=== PATIENT | female | born 1990 | race African-American/Black ===

== ENCOUNTER 2020-07-29 15:43 | Emergency (ER) | payer OTHER ==
[2020-07-29 16:21] LABS: BASOPHILS # (AUTO) 0.1 10^3/uL (0.0-0.1); BASOPHILS % (AUTO) 0.5 %; EOSINOPHILS # (AUTO) 0.1 10^3/uL (0.0-0.7); EOSINOPHILS % (AUTO) 1.2 %; HGB - HEMOGLOBIN 14.4 g/dL (12.0-16.0); LYMPHOCYTES # (AUTO) 2.7 10^3/uL (1.5-3.5); LYMPHOCYTES % (AUTO) 26.5 %; MEAN CORPUSCULAR HEMOGLOBIN 30.9 pg (27.0-31.0); MEAN CORPUSCULAR HGB CONC 34.5 g/dL (32.0-36.0); MEAN CORPUSCULAR VOLUME 89.5 fL (81.0-99.0); MEAN PLATELET VOLUME 9.1 fL (7.9-10.8); MONOCYTES # (AUTO) 0.3 10^3/uL (0.0-1.0); MONOCYTES % (AUTO) 2.6 %; NEUTROPHILS # (AUTO) 7.1 10^3/uL (1.5-6.6); NEUTROPHILS % (AUTO) 68.7 %; PLT - PLATELET COUNT 327 10^3/uL (130-450); RED BLOOD COUNT 4.66 10^6/uL (4.20-5.40); RED CELL DISTRIBUTION WIDTH 11.7 % (12.0-15.0); WHITE BLOOD COUNT 10.3 x10^3/uL (4.8-10.8)
--- NOTE | 2020-07-29 16:32 | ED Physician Documentation ---
History of Present Illness - Stated complaint Stated Complaint: ABD CRAMP/NAUSEA - Chief complaint Chief Complaint: Abd Pain - Additonal information Additional information: 21-year-old female presents the emergency department for evaluation of lower pelvic pain. She reports that her menstrual cycle ended yesterday. However 3 days ago she began having low back pain followed by low pelvic pain. She denies any fevers any vomiting. Denies dysuria urgency or frequency. She states that she takes oral contraceptives and has a monthly cycle. She denies that she has any possibility of . She states that she knows her body well and the lower pelvic pain was assigned to her that something was seriously wrong. She is concerned that she could have fibroids or endometriosis. She called her pcp but they were unable to see her for 2 weeks She denies any pertinent past medical history. She takes no prescribed medications other than oral contraceptives. She is a non-smoker nondrinker. Review of Systems Constitutional: reports: Reviewed and negative Nose: reports: Reviewed and negative Throat: reports: Reviewed and negative Cardiac: reports: Reviewed and negative Respiratory: reports: Reviewed and negative GI: reports: Abdominal Pain. denies: Nausea, Vomiting, Diarrhea, Hematemesis, Bloody / black stool : denies: Dysuria, Frequency, Hesitancy, Hematuria Skin: reports: Reviewed and negative Musculoskeletal: reports: Back pain Neurologic: reports: Reviewed and negative Psychiatric: reports: Reviewed and negative PD PAST MEDICAL HISTORY - Allergies Allergies/Adverse Reactions: Allergies Allergy/AdvReac Type Severity Reaction Status Date / Time No Known Drug Allergies Allergy Verified 07/29/20 15:55 - Social History Does the pt smoke?: No Smoking Status: Never smoker PD ED PE NORMAL - General General: Alert and oriented X 3, No acute distress - Neck Neck: Supple, no meningeal sign - Cardiac Cardiac: RRR, No murmur - Respiratory Respiratory: Clear bilaterally - Abdomen Abdomen: Normal bowel sounds, Soft, Non tender, Non distended - Back Back: No CVA TTP - Derm Derm: Normal color, Warm and dry - Extremities Extremities: No deformity, No tenderness to palpate - Neuro Neuro: Alert and oriented X 3, 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 Eye Opening: Spontaneous Motor: Obeys Commands Verbal: Oriented GCS Score: 15 Results - Vitals Vitals: Vital Signs - 24 hr 07/29/20 07/29/20 15:49 17:55 Temperature 36.5 C Heart Rate 64 56 L Respiratory 14 18 Rate Blood Pressure 139/77 H 112/67 O2 Saturation 100 100 Oxygen O2 Source Room air - Labs Labs: Laboratory Tests 07/29/20 07/29/20 07/29/20 16:18 16:18 16:37 WBC 10.3 RBC 4.66 Hgb 14.4 Hct 41.7 MCV 89.5 MCH 30.9 MCHC 34.5 RDW 11.7 L Plt Count 327 MPV 9.1 Neut # (Auto) 7.1 H Lymph # (Auto) 2.7 Weber # (Auto) 0.3 Eos # (Auto) 0.1 Baso # (Auto) 0.1 Absolute Nucleated RBC 0.00 Nucleated RBC % 0.0 Sodium 138 Potassium 4.0 Chloride 100 L Carbon Dioxide 27 Anion Gap 11.0 BUN 8 Creatinine 0.9 Estimated GFR (MDRD) 90 Glucose 130 H Calcium 9.4 Total Bilirubin 0.6 AST 20 ALT 18 Alkaline Phosphatase 37 L Total Protein 7.5 Albumin 4.3 Globulin 3.2 Albumin/Globulin Ratio 1.3 Lipase 42 Urine Color YELLOW Urine Clarity CLEAR Urine pH 6.0 Ur Specific [place] 1.010 Urine Protein NEGATIVE Urine Glucose (UA) NEGATIVE Urine Ketones NEGATIVE Urine Occult Blood SMALL H Urine Nitrite NEGATIVE Urine Bilirubin NEGATIVE Urine Urobilinogen 0.2 (NORMAL) Ur Leukocyte Esterase NEGATIVE Urine RBC 0-5 Urine WBC 0-3 Ur Squamous Epith Cells RARE Squamous Urine Bacteria Rare Ur Microscopic Review INDICATED Urine Culture Comments NOT INDICATED Urine HCG, Qual NEGATIVE - Rads (name of study) pelvic US Radiology: See rad report, Other (Per technologist there are multiple small fibroids within the uterine body. Both ovaries show appropriate flow without findings of torsion.) PD MEDICAL DECISION MAKING - ED course Complexity details: reviewed results, re-evaluated patient, considered differential, d/w patient ED course: 29-year-old female presents to the emergency department for evaluation of lower pelvic pain for 2 days. She reports a history of monthly regular cycles while on control. She did currently just finished her menstrual cycle 2 days ago. And has no further active bleeding. She has no urinary symptoms. On exam unable to elicit any abdominal tenderness. However after doing a Google search the patient is exceedingly concerned that she may have fibroids despite the lack of bleeding or endometriosis. 1915: Pelvic ultrasound reveals multiple small fibroids within the uterine body. There were no findings of ovarian torsion or cyst. These findings were discussed with the patient. She will discuss with her primary care provider at [facility] in order to obtain a referral to women's health/[facility]. Emergent return precautions were discussed and they include but are not limited to severe pain, heavy uncontrolled vaginal bleeding and fevers. Departure - Departure Disposition: 01 Home, Self Care Clinical Impression: Uterine fibroid Qualifiers: Uterine leiomyoma location: unspecified location Qualified Code(s): D25.9 - Leiomyoma of uterus, unspecified Condition: Stable Record reviewed to determine appropriate education?: Yes Instructions: ED Fibroids Follow-Up: Joy Reynoso MD [Primary Care Provider] - Comments: Your labs today are essentially unremarkable. Your hemoglobin and electrolytes are normal. We did do an ultrasound of your pelvic organs. The ovaries appeared normal without cysts. However there were findings of multiple small fibroids within your uterus. Please discuss this finding with your primary care provider. You should be referred to an [facility] for long-term management and follow-up. Return to the emergency department if you develop fevers, have uncontrolled vaginal bleeding, or suddenly severe or different abdominal pain.
[2020-07-29 16:35] LABS: ALBUMIN 4.3 g/dL (3.2-5.5); ALBUMIN/GLOBULIN RATIO 1.3 (1.0-2.2); BILIRUBIN,TOTAL 0.6 mg/dL (0.2-1.0); CALCIUM 9.4 mg/dL (8.5-10.3); CREATININE 0.9 mg/dL (0.4-1.0); TOTAL PROTEIN 7.5 g/dL (6.7-8.2)
[2020-07-29 16:53] LABS: BILIRUBIN,URINE NEGATIVE (NEGATIVE); GLUCOSE, URINE (UA) NEGATIVE (NEGATIVE); KETONES,URINE (UA) NEGATIVE (NEGATIVE); LEUKOCYTE ESTERASE, URINE NEGATIVE (NEGATIVE); NITRITE,URINE NEGATIVE (NEGATIVE); OCCULT BLOOD,URINE SMALL (NEGATIVE); PROTEIN,URINE NEGATIVE (NEGATIVE); UROBILINOGEN,URINE 0.2 (NORMAL) E.U./dL (NORMAL)
[2020-07-29 16:56] LABS: CLARITY,URINE CLEAR (CLEAR); HCG UR QUAL NEGATIVE
[2020-07-29 17:10] LABS: BACTERIA,URINE Rare /HPF (None Seen); RBC,URINE 0-5 /HPF (0-5); SQUAMOUS EPITHELIAL CELL,UR RARE Squamous (<= Few)
[2020-07-29] MEDS ORDERED: IBUPROFEN 600 MG TABLET PO STA (18:01)
[2020-07-29] MEDS ORDERED: ACETAMINOPHEN 325 MG TABLET PO STA (18:01)
[2020-07-29 19:20] VITALS: BP 142/82
--- NOTE | 2020-07-30 09:02 | Ultrasound Report ---
PROCEDURE: Pelvic w/Doppler Complete INDICATIONS: lower pelvic pain for 2 days; ? fibroids/cysts?? TECHNIQUE: Real-time scanning was performed of the pelvic organs, with image documentation. Additional endovagi nal scanning was necessary due to incomplete visualization of the adnexal and endometrial structures by transabdominal scanning. COMPARISON: None. FINDINGS: Transabdominal scanning: Limited scanning through the kidneys shows no hydronephrosis. No pathologi c free abdominal or pelvic fluid. Endovaginal scanning: Uterus: Uterus is normal in size at 4.1 x 4.9 x 8.5 cm. The endometrium measures 5 mm in combined t hickness. Heterogeneous myometrial echotexture is noted with multiple uterine fibroids seen, the larg est one measures 1.2 x 1.2 x 1.3 cm in size in right anterior myometrium. Left posterior subserosal f ibroid measures 1.1 x 0.9 x 0.8 cm in size. Tiny 4 x 3 x 5 mm posterior intramural fibroid in left my ometrium is also seen. No gross endometrial mass is seen. Trace amount of fluid is noted within endom etrial cavity. Fluid is seen within cervical canal. Ovaries: Right ovary measures 2.5 x 1.2 x 2.2 cm in size. Left ovary measures 3.7 x 1.6 x 1.3 cm in size. No solid-appearing ovarian lesion. Normal blood flow is seen in bilateral ovaries on color Dopp ler images. IMPRESSION: 1. Multiple small uterine fibroids as described above. No discrete endometrial mass. Trace amount of endometrial fluid and endocervical fluid. 2. Normal-appearing bilateral ovaries. No evidence of ovarian torsion. Agree with preliminary reading. Reviewed by: Ole Marin MD on 07/30/2020 9:01 AM [facility] Approved by: Ole Marin MD on 07/30/2020 9:01 AM PST Station ID: [id number]
== END 2020-07-29 19:25 | disposition home or self-care (01) ==
LOC: ED 15:43
DX: D25.2 Subserosal leiomyoma of uterus (principal); D25.1 Intramural leiomyoma of uterus
CPT/HCPCS: 36415; 76856; 80053; 81001; 81025; 83690; 85025; 93975; 99284; A9270; 81003; 87086

== ENCOUNTER 2020-08-20 01:36 | Emergency (ER) | payer OTHER ==
--- NOTE | 2020-08-20 02:29 | ED Physician Documentation ---
PD HPI DYSPNEA - Stated complaint Stated Complaint: SOA - Chief complaint Chief Complaint: Resp - History obtained from History obtained from: Patient - History of Present Illness Timing - onset: How many days ago (5-6) Timing - details: Gradual onset Improved by: Rest Worsened by: Exertion, Coughing Associated symptoms: Cough, Wheezing, Chest pain / discomfort. No: Fever, Hemoptysis, Bilateral edema, Unilateral edema Recently seen: Other ([facility]) - Additional information Additional information: c/o 5-6 days of cough, initially nonproductive but has gradually become increasingly moist and now productive of thick, brown/green sputum. she c/o mild ISABEL.denies fever. She was seen at [facility] on Monday (08/17), had COVID test but does not know result yet, and was prescribed prednisone and an albuterol MDI. She filled these prescriptions earlier today and thus has only had one dose of the prednisone thus far. she presents due to worsening of the symptoms (cough, dyspnea). denies h/o similar symptoms. she does not have pulmonary d iagnoses such as asthma, has not been prescribed steroids in the past Review of Systems Constitutional: denies: Fever, Chills, Myalgias, Sweats Throat: denies: Sore throat Cardiac: reports: Chest pain / pressure. denies: Palpitations, Pedal edema, Calf pain Respiratory: reports: Dyspnea, Cough, Wheezing. denies: Hemoptysis PD PAST MEDICAL HISTORY - Past Medical History Past Medical History: No - Present Medications Home Medications: Ambulatory Orders Medication Instructions Recorded Confirmed Azithromycin [Zithromax] 250 mg PO DAILY #4 tablet 08/20/20 - Allergies Allergies/Adverse Reactions: Allergies Allergy/AdvReac Type Severity Reaction Status Date / Time No Known Drug Allergies Allergy Verified 08/20/20 01:47 - Living Situation Living Situation: reports: With family Living Arrangement: reports: At home - Social History Does the pt smoke?: No Smoking Status: Never smoker Does the pt drink ETOH?: No Does the pt have substance abuse?: No PD ED PE NORMAL - Vitals Vital signs reviewed: Yes - General General: Alert and oriented X 3, No acute distress, Well developed/nourished - Neck Neck: Supple, no meningeal sign - Cardiac Cardiac: RRR, No murmur - Respiratory Respiratory: No respiratory distress PD ED PE EXPANDED - Respiratory Respiratory: Wheezing (course wheezing bilaterally (inspiratory only)) Results - Vitals Vitals: Vital Signs - 24 hr 08/20/20 08/20/20 08/20/20 01:40 01:58 04:20 Temperature 37.0 C 37 C Heart Rate 76 76 72 Respiratory 16 16 18 Rate Blood Pressure 129/69 129/69 O2 Saturation 98 98 08/20/20 04:21 Temperature Heart Rate 79 Respiratory 18 Rate Blood Pressure 117/76 O2 Saturation 98 Oxygen O2 Source Room air - Labs Labs: Laboratory Tests 08/20/20 02:46 Nasal Adenovirus (PCR) NOT DETECTED Nasal B. parapertussis DNA (PCR) NOT DETECTED Nasal Coronavir 229E PCR NOT DETECTED Nasal Coronavir HKU1 PCR NOT DETECTED Nasal Coronavir NL63 PCR NOT DETECTED Nasal Coronavir OC43 PCR NOT DETECTED Nasal Enterovir/Rhinovir PCR NOT DETECTED Nasal Influenza B PCR NOT DETECTED Nasal Influenza A PCR NOT DETECTED Nasal Parainfluen 1 PCR NOT DETECTED Nasal Parainfluen 2 PCR NOT DETECTED Nasal Parainfluen 3 PCR NOT DETECTED Nasal Parainfluen 4 PCR NOT DETECTED Nasal RSV (PCR) NOT DETECTED Nasal B.pertussis DNA PCR NOT DETECTED Nasal C.pneumoniae (PCR) NOT DETECTED Shira Human Metapneumo PCR NOT DETECTED Nasal M.pneumoniae (PCR) NOT DETECTED Nasal SARS-CoV-2 (PCR) NOT DETECTED - Rads (name of study) chest xray Radiology: Prelim report reviewed, See rad report PD MEDICAL DECISION MAKING - ED course Complexity details: reviewed results, re-evaluated patient, considered differential, d/w patient ED course: CXR is normal. she is not in respiratory distress but has bilateral course breath sounds on exam. she is given a duoneb after her respiratory panel (including COVID and influenza) returns negative. She reports mild improvement in symptoms with the duoneb. She has mild improvement on reexam (auscultation) but good aeration bilaterally and 100% pulse ox on room air. given her worsening of symptoms and cough that was nonproductive but is now productive of thick, discolored mucous, will rx zithromax with first dose in ED. instructed to follow up with PMD and return to ED if worse. She is to continue the prednisone as prescribed and use the albuterol MDI PRN as prescribed Departure - Departure Disposition: 01 Home, Self Care Clinical Impression: Bronchitis with bronchospasm Condition: Good Instructions: ED Upper Resp Infec Abx Tx, ED Bronchitis Asthmatic Follow-Up: SHIRA Ng [Provider Group] Prescriptions: Azithromycin [Zithromax] 250 mg PO DAILY #4 tablet Forms: Activity restrictions Discharge Date/Time: 08/20/20 04:50
[2020-08-20] MEDS ORDERED: IPRATROPIUM/ALBUTEROL 3 ML NEB INH STA ×2 (02:43→04:02)
[2020-08-20 03:59] LABS: C. PNEUMONIAE- RESP PCR PANEL NOT DETECTED
[2020-08-20 04:22] VITALS: BP 117/76
[2020-08-20] MEDS ORDERED: AZITHROMYCIN 250 MG TABLET PO STA (04:43)
--- NOTE | 2020-08-20 12:19 | XRAY Report ---
PROCEDURE: Chest 2 View X-Ray INDICATIONS: cough, dyspnea, rhonchi TECHNIQUE: 2 view(s) of the chest. COMPARISON: None. FINDINGS: Surgical changes and devices: None. Lungs and pleura: No pleural effusions or pneumothorax. Lungs are clear. Mediastinum: Mediastinal contours are normal. Heart size is normal. Bones and chest wall: No suspicious bony abnormalities. Soft tissues appear unremarkable. IMPRESSION: No acute pulmonary process. The above findings are concordant with preliminary report. Reviewed by: Hilda Trimble MD on 08/20/2020 12:18 PM [facility] Approved by: Hilda Trimble MD on 08/20/2020 12:18 PM [facility] Station ID: [id number]
== END 2020-08-20 04:50 | disposition home or self-care (01) ==
LOC: ED 01:36
DX: J20.9 Acute bronchitis, unspecified (principal); Z20.822 Contact with and (suspected) exposure to COVID-19
CPT/HCPCS: 0202U; 71046; 94640; 94664; 99283; 99284; A9270

== ENCOUNTER 2021-02-16 22:39 | Emergency (ER) | payer OTHER ==
--- NOTE | 2021-02-16 23:38 | ED Physician Documentation ---
History of Present Illness - Stated complaint Stated Complaint: MED REACTION - Chief complaint Chief Complaint: General - History obtained from History obtained from: Patient - Additonal information Additional information: 30-year-old woman with history of asthma presents after being prescribed Advair today and taking her first puff at 1900. Immediately after she experienced difficulty swallowing and heaviness at the base of the neck. She was frightened and came to the emergency department immediately. Denies wheezing, stridor, shortness of breath, chest pain, nausea, lightheadedness, vision changes rash or itching. Review of Systems Constitutional: denies: Fever, Chills Throat: reports: Other (throat tightness) Cardiac: denies: Chest pain / pressure Respiratory: denies: Dyspnea, Cough GI: denies: Nausea PD PAST MEDICAL HISTORY - Past Medical History Past Medical History: No - Past Surgical History Past Surgical History: No - Present Medications Home Medications: Ambulatory Orders Medication Instructions Recorded Confirmed Fluticasone/Salmeterol [Advair Hfa 2 puffs BID 02/16/21 02/16/21 45-21 Mcg Inhaler] - Allergies Allergies/Adverse Reactions: Allergies Allergy/AdvReac Type Severity Reaction Status Date / Time No Known Drug Allergies Allergy Verified 08/20/20 01:47 - Social History Does the pt smoke?: No Smoking Status: Never smoker Does the pt drink ETOH?: No Does the pt have substance abuse?: No PD ED PE NORMAL - Vitals Vital signs reviewed: Yes - General General: Alert and oriented X 3, No acute distress, Well developed/nourished - HEENT HEENT: Atraumatic, PERRL, EOMI, Moist mucous membranes, Pharynx benign - Neck Neck: Supple, no meningeal sign - Cardiac Cardiac: RRR - Respiratory Respiratory: No respiratory distress, Clear bilaterally - Abdomen Abdomen: Non tender, Non distended - Derm Derm: Normal color, Warm and dry, No rash - Extremities Extremities: No deformity - Neuro Neuro: Alert and oriented X 3 Results - Vitals Vitals: Vital Signs - 24 hr 02/16/21 02/16/21 22:50 23:17 Temperature 36.9 C Heart Rate 68 73 Respiratory 18 18 Rate Blood Pressure 139/73 H 125/80 O2 Saturation 100 99 Oxygen O2 Source Room air PD MEDICAL DECISION MAKING - ED course ED course: 30-year-old woman presents for medical evaluation after using her inhaler for the first time. She is well-appearing and does not appear to pack be having an allergic reaction. I had respiratory therapy come down and educate her about use of a spacer and we provided her with a spacer. Return precautions given. She will follow up with her primary doctor Departure - Departure Disposition: Home, Self Care Clinical Impression: Encounter for medical screening examination Condition: Good Instructions: Inhaler W Spacer Comments: You were seen in the emergency department for medical evaluation. Your vital signs and physical exam are normal. Please return to the emergency department if you have any new or worsening symptoms or other concerns. Follow-up with your doctor.
[2021-02-16 23:41] VITALS: BP 114/73
== END 2021-02-16 23:41 | disposition home or self-care (01) ==
LOC: ED 22:39
DX: Z00.00 Encounter for general adult medical examination without abnormal findings (principal); Z71.1 Person with feared health complaint in whom no diagnosis is made
CPT/HCPCS: 99281

== ENCOUNTER 2021-04-09 21:18 | Outpatient (CLI) | payer OTHER | END 2021-04-09 21:19 | disposition critical access hospital (66) | LOC: EMS 21:18 | DX: R55 Syncope and collapse (principal); R00.0 Tachycardia, unspecified | CPT/HCPCS: A0425; A0429 ==

== ENCOUNTER 2021-04-09 21:38 | Emergency (ER) | payer OTHER ==
--- NOTE | 2021-04-09 22:21 | ED Physician Documentation ---
History of Present Illness - Stated complaint Stated Complaint: NEAR SYNCOPE - Chief complaint Chief Complaint: General - History obtained from History obtained from: Patient - Additonal information Additional information: 30-year-old generally healthy female who presented after near syncopal episode at home. The patient states that she had a hard week, she was tired when she got home and felt somewhat agitated. She took a hot shower which typically makes her feel better but soon after she got out she felt like she was going to pass out. She had some tingling in her left arm and her right leg. She checked her heart rate on a home pulse ox and states that it was 166. She had no chest pain, no shortness of breath, no abdominal pain, no nausea vomiting or diarrhea. She has no urinary symptoms. She denies any new medications, she denies any chronic health problems. She is on oral contraception which she uses regularly. She does suspect that she may be mildly dehydrated. She felt quite concerned so she called EMS. On EMS arrival patient was stable. They started an IV and gave her a liter of fluid And she is feeling quite a bit better at this time. Review of Systems Constitutional: reports: Reviewed and negative Eyes: reports: Reviewed and negative Ears: reports: Reviewed and negative Nose: reports: Reviewed and negative Throat: reports: Reviewed and negative Cardiac: reports: Palpitations. denies: Chest pain / pressure, Pedal edema, Calf pain Respiratory: reports: Reviewed and negative GI: reports: Reviewed and negative : reports: Reviewed and negative Skin: reports: Reviewed and negative Musculoskeletal: reports: Reviewed and negative Neurologic: reports: Near syncope. denies: Generalized weakness, Focal weakness, Syncope, Seizure, Confused, Altered mental status, Unresponsive, Headache, Head injury, LOC Psychiatric: reports: Reviewed and negative Endocrine: reports: Reviewed and negative Immunocompromised: reports: Reviewed and negative PD PAST MEDICAL HISTORY - Past Medical History Past Medical History: Yes Respiratory: Asthma - Past Surgical History Past Surgical History: No - Present Medications Home Medications: Ambulatory Orders Medication Instructions Recorded Confirmed Fluticasone/Salmeterol [Advair Hfa 2 puffs BID 02/16/21 04/09/21 45-21 Mcg Inhaler] - Allergies Allergies/Adverse Reactions: Allergies Allergy/AdvReac Type Severity Reaction Status Date / Time No Known Drug Allergies Allergy Verified 04/09/21 21:48 - Social History Does the pt smoke?: No Smoking Status: Never smoker Does the pt drink ETOH?: No Does the pt have substance abuse?: No PD ED PE NORMAL - Vitals Vital signs reviewed: Yes - General General: Alert and oriented X 3, No acute distress, Well developed/nourished - HEENT HEENT: Atraumatic, Moist mucous membranes, Pharynx benign - Neck Neck: Supple, no meningeal sign, No JVD - Cardiac Cardiac: RRR, No murmur, No gallop, No rub - Respiratory Respiratory: No respiratory distress, Clear bilaterally - Abdomen Abdomen: Normal bowel sounds, Soft, Non tender, Non distended - Derm Derm: Normal color, Warm and dry, No rash - Extremities Extremities: No deformity, No tenderness to palpate, Normal ROM s pain - Neuro Neuro: Alert and oriented X 3, No motor deficit, No sensory deficit, Normal speech Eye Opening: Spontaneous Motor: Obeys Commands Verbal: Oriented GCS Score: 15 - Psych Psych: Normal mood, Normal affect Results - Vitals Vitals: Vital Signs - 24 hr 04/09/21 21:42 Temperature 37.0 C Heart Rate 63 Respiratory 16 Rate Blood Pressure 134/73 H O2 Saturation 100 Oxygen O2 Source Room air PD MEDICAL DECISION MAKING - ED course Complexity details: re-evaluated patient, d/w patient ED course: This is a 30-year-old female who presented after near syncopal episode. The patient was feeling quite exhausted after the week and took a long hot shower. I suspect that she may have had some vasodilation from a hot shower resulting in near syncopal episode. She may have also had some mild dehydration. She feels substantially better now after receiving a liter of IV fluids. We obtained a EKG which is normal sinus rhythm, no acute changes. Her vital signs there all completely normal. Her physical exam is reassuring. I did offer labs today advised a did not think they were necessary and patient agrees it as she feels better now we can hold off on labs at this time. I encouraged her to go home, rest, stay well-hydrated and avoid any strenuous activity over the weekend and try to get plenty of rest. I reviewed return precautions with the patient. Departure - Departure Disposition: 01 Home, Self Care Clinical Impression: Near syncope Condition: Good Instructions: ED Near Syncope Vasovagal Comments: You presented after a near syncopal episode as well as with heart palpitations. I suspect this is in part due to exhaustion and may be mild dehydration as well as the hot shower likely caused a vasovagal response in your body. This is when your blood pressure can drop suddenly and her heart rate can go up. It typical ly self resolves. You have no signs of infection, your physical exam is reassuring, your vital signs here and your EKG were all normal. Please get plenty of rest this weekend and sure you are drinking plenty of fluids and eating well. Avoid hot showers or hot tubs as this can exacerbate symptoms. Return to the ER if you develop chest pain, shortness of breath, recurrent or palpitations or otherwise new concerns.
[2021-04-09 23:10] VITALS: BP 123/78
== END 2021-04-09 23:47 | disposition home or self-care (01) ==
LOC: EDUNIT# → SUPCPDRO 21:38 → ED 21:38
DX: R55 Syncope and collapse (principal)
CPT/HCPCS: 93005; 99283

== ENCOUNTER 2021-04-22 15:53 | Outpatient (CLI) | payer OTHER | END 2021-04-22 23:59 | disposition home or self-care (01) | LOC: LAB.N 15:53 | PROVIDERS: ATTEND Family Medicine | DX: M54.50 Low back pain, unspecified (principal) | CPT/HCPCS: 87086 ==

== ENCOUNTER 2021-04-30 08:44 | Emergency (ER) | payer OTHER ==
--- NOTE | 2021-04-30 09:21 | ED Physician Documentation ---
PD HPI ABD PAIN - Stated complaint Stated Complaint: LOWER R ABN PX RADIATE TO BACK - Chief complaint Chief Complaint: Abd Pain - History obtained from History obtained from: Patient - Additional information Additional information: 8 days right flank pain which started radiating to RLQ starting yesterday. Constant, dull ache. Had phone tele-doc visit and felt to be c/w kidney stone and motrin recommended, no diagnostics done. Review of Systems Ten Systems: 10 systems reviewed and negative Constitutional: denies: Fever, Chills Throat: denies: Dental pain / toothache, Sore throat Cardiac: reports: Reviewed and negative Respiratory: reports: Reviewed and negative PD PAST MEDICAL HISTORY - Past Medical History Respiratory: Asthma - Past Surgical History Past Surgical History: No - Present Medications Home Medications: Ambulatory Orders Medication Instructions Recorded Confirmed Fluticasone/Salmeterol [Advair Hfa 2 puffs BID 02/16/21 04/09/21 45-21 Mcg Inhaler] - Allergies Allergies/Adverse Reactions: Allergies Allergy/AdvReac Type Severity Reaction Status Date / Time No Known Drug Allergies Allergy Verified 04/30/21 08:57 - Social History Does the pt smoke?: No Smoking Status: Never smoker Does the pt drink ETOH?: No Does the pt have substance abuse?: No PD ED PE NORMAL - Vitals Vital signs reviewed: Yes - General General: Alert and oriented X 3, No acute distress - HEENT HEENT: PERRL, EOMI - Neck Neck: Supple, no meningeal sign, No bony TTP - Cardiac Cardiac: RRR, No murmur - Respiratory Respiratory: No respiratory distress, Clear bilaterally - Abdomen Abdomen: Other (TTP RLQ, neg psoas) - Back Back: No CVA TTP, No spinal TTP - Derm Derm: Normal color, Warm and dry - Extremities Extremities: No edema, No calf tenderness / cord - Neuro Neuro: Alert and oriented X 3, Normal speech Results - Vitals Vitals: Vital Signs - 24 hr 04/30/21 08:54 Temperature 36.1 C L Heart Rate 61 Respiratory 16 Rate Blood Pressure 137/86 H O2 Saturation 100 Oxygen O2 Source Room air - Labs Labs: Laboratory Tests 04/30/21 04/30/21 04/30/21 09:29 09:29 10:14 WBC 8.5 RBC 4.45 Hgb 13.3 Hct 39.3 MCV 88.3 MCH 29.9 MCHC 33.8 RDW 11.9 L Plt Count 307 MPV 9.0 Neut # (Auto) 6.0 Lymph # (Auto) 1.8 [place] # (Auto) 0.4 Eos # (Auto) 0.1 Baso # (Auto) 0.0 Absolute Nucleated RBC 0.00 Nucleated RBC % 0.0 Sodium 138 Potassium 3.9 Chloride 100 L Carbon Dioxide 27 Anion Gap 11.0 BUN 7 Creatinine 0.8 Estimated GFR (MDRD) 103 Glucose 96 Calcium 9.4 Total Bilirubin 0.8 AST 21 ALT 21 Alkaline Phosphatase 33 L Total Protein 7.3 Albumin 4.5 Globulin 2.8 Albumin/Globulin Ratio 1.6 Lipase 47 Urine Color YELLOW Urine Clarity CLEAR Urine pH 6.5 Ur Specific [place] <=1.005 Urine Protein NEGATIVE Urine Glucose (UA) NEGATIVE Urine Ketones NEGATIVE Urine Occult Blood TRACE-INTA Urine Nitrite NEGATIVE Urine Bilirubin NEGATIVE Urine Urobilinogen 0.2 (NORMAL) Ur Leukocyte Esterase NEGATIVE Ur Microscopic Review NOT INDICATED Urine Culture Comments NOT INDICATED Urine HCG, Qual NEGATIVE - Rads (name of study) CT A/P Radiology: EMP read contemporaneously (negative) PD MEDICAL DECISION MAKING - ED course ED course: 30-year-old woman presents with back and abdominal pain. Work-up demonstrates no evidence of renal colic, appendicitis. Her history and physical is not c onsistent with ovarian torsion or PID. Although not commented on the CT read she does have at least a modest stool load and this may be causative. She was given a bottle of mag's magnesium citrate and close return precautions. Departure - Departure Disposition: 01 Home, Self Care Clinical Impression: Abdominal pain Qualifiers: Abdominal location: right lower quadrant Qualified Code(s): R10.31 - Right lower quadrant pain Condition: Good Record reviewed to determine appropriate education?: Yes Instructions: ED Abdominal Pain Female Non-Specific Abdominal Pain Comments: Return in 12 hours if not better, anytime for new or worse symptoms. Forms: Activity restrictions
[2021-04-30] MEDS ORDERED: KETOROLAC 30 MG/ML VIAL IVP STA (09:24)
[2021-04-30 09:33] LABS: BASOPHILS % (AUTO) 0.5 %; EOSINOPHILS # (AUTO) 0.1 10^3/uL (0.0-0.7); EOSINOPHILS % (AUTO) 1.4 %; HCT - HEMATOCRIT 39.3 % (37.0-47.0); HGB - HEMOGLOBIN 13.3 g/dL (12.0-16.0); LYMPHOCYTES # (AUTO) 1.8 10^3/uL (1.5-3.5); LYMPHOCYTES % (AUTO) 21.3 %; MEAN CORPUSCULAR HEMOGLOBIN 29.9 pg (27.0-31.0); MEAN CORPUSCULAR HGB CONC 33.8 g/dL (32.0-36.0); MEAN CORPUSCULAR VOLUME 88.3 fL (81.0-99.0); MONOCYTES # (AUTO) 0.4 10^3/uL (0.0-1.0); NEUTROPHILS % (AUTO) 71.2 %; PLT - PLATELET COUNT 307 10^3/uL (130-450); RED BLOOD COUNT 4.45 10^6/uL (4.20-5.40); RED CELL DISTRIBUTION WIDTH 11.9 % (12.0-15.0); WHITE BLOOD COUNT 8.5 x10^3/uL (4.8-10.8)
[2021-04-30 09:47] LABS: ALBUMIN 4.5 g/dL (3.2-5.5); ALBUMIN/GLOBULIN RATIO 1.6 (1.0-2.2); BILIRUBIN,TOTAL 0.8 mg/dL (0.2-1.0); CALCIUM 9.4 mg/dL (8.5-10.3); CREATININE 0.8 mg/dL (0.4-1.0); POTASSIUM 3.9 mmol/L (3.5-5.0); TOTAL PROTEIN 7.3 g/dL (6.7-8.2)
[2021-04-30] MEDS ORDERED: IOVERSOL 320 100 ML VIAL IVP ONE ×2 (10:10→14:32)
[2021-04-30 10:20] LABS: BILIRUBIN,URINE NEGATIVE (NEGATIVE); CLARITY,URINE CLEAR (CLEAR); GLUCOSE, URINE (UA) NEGATIVE (NEGATIVE); HCG UR QUAL NEGATIVE; KETONES,URINE (UA) NEGATIVE (NEGATIVE); LEUKOCYTE ESTERASE, URINE NEGATIVE (NEGATIVE); NITRITE,URINE NEGATIVE (NEGATIVE); OCCULT BLOOD,URINE TRACE-INTA (NEGATIVE); PH,URINE 6.5 PH (5.0-7.5); PROTEIN,URINE NEGATIVE (NEGATIVE); UROBILINOGEN,URINE 0.2 (NORMAL) E.U./dL (NORMAL)
--- NOTE | 2021-04-30 11:27 | CT Report ---
PROCEDURE: Abdomen/Pelvis W INDICATIONS: RLQ pain CONTRAST: IV CONTRAST: Optiray 320 ml: 100 PO CONTRAST: *NO PO CONTRAST TECHNIQUE: After the administration of intravenous contrast, 5 mm thick sections acquired from the diaphragms to the symphysis. 5 mm thick coronal and sagittal reformats were acquired. For radiation dose reducti on, the following was used: automated exposure control, adjustment of mA and/or kV according to yasemin ent size. COMPARISON: None. FINDINGS: Image quality: Excellent. ABDOMEN: Lung bases: Lung bases are clear. Heart size is normal. Solid organs: Evaluation of the liver demonstrates no focal hepatic lesions. Gallbladder appears with in normal limits without calcified gallstones. Biliary system is non dilated. The spleen is normal i n size. Pancreas enhances normally without peripancreatic fat stranding or fluid collections. No adr enal nodules. Kidneys demonstrate no hydronephrosis. Peritoneum and bowel: Bowel loops demonstrate normal wall thickness and caliber. The appendix is nor mal in appearance. A few colonic diverticula are present without acute diverticulitis. No free fluid or air. Nodes and vessels: No retroperitoneal or mesenteric adenopathy by size criteria. Aorta and inferior vena cava are normal in size. Miscellaneous: No ventral hernias. PELVIS: Genitourinary: Bladder wall thickness is normal. The uterus and ovaries appear within normal size li mits. Miscellaneous: No inguinal hernias or adenopathy. Bones: No suspicious bony lesions. No vertebral body compression fractures. IMPRESSION: 1. No definite acute intra-abdominal abnormality. Specifically, no acute appendicitis. Reviewed by: Jean-Claude Mirza MD on 04/30/2021 11:26 AM PDT Approved by: Jean-Claude Mirza MD on 04/30/2021 11:26 AM PDT Station ID: [id number]
[2021-04-30] MEDS ORDERED: MAGNESIUM CITRATE 296 ML BOTTLE PO STA (11:44)
[2021-04-30 12:02] VITALS: BP 121/78
== END 2021-04-30 12:01 | disposition home or self-care (01) ==
LOC: ED 08:44
DX: R10.31 Right lower quadrant pain (principal)
CPT/HCPCS: 36415; 74177; 80053; 81003; 81025; 83690; 85025; 96374; 99282; 99284; A9270; Q9967; 81001; 87086

== ENCOUNTER 2021-06-16 10:14 | Outpatient (CLI) | payer OTHER ==
[2021-06-16 18:59] LABS: CHLAMYDIA TRACHOMATIS DNA NEGATIVE (NEGATIVE); NEISSERIA GONORRHOEAE DNA NEGATIVE (NEGATIVE); TRICHOMONAS VAGINALIS DNA NEGATIVE (NEGATIVE)
[2021-06-16 20:19] LABS: BACTERIAL VAGINOSIS DNA NEGATIVE (NEGATIVE); CANDIDA GLABRATA DNA NEGATIVE (NEGATIVE); CANDIDA GROUP DNA POSITIVE (NEGATIVE); CANDIDA KRUSEI DNA NEGATIVE (NEGATIVE); TRICHOMONAS VAGINALIS DNA NEGATIVE (NEGATIVE)
== END 2021-06-16 11:42 | disposition home or self-care (01) ==
LOC: LAB.N 10:14
PROVIDERS: ATTEND Family Medicine
DX: Z11.3 Encounter for screening for infections with a predominantly sexual mode of transmission (principal)
CPT/HCPCS: 87086; 87491; 87591; 87661; 87801

== ENCOUNTER 2022-04-06 13:15 | Emergency (ER) | payer OTHER ==
--- OUTSIDE RECORDS SUMMARY | 2022-04-06 13:22 | EXTERNAL MEDICAL SUMMARY RPT | Continuity of Care Document ---
:1990 Author Organization [facility] Address [address] [place] [address] Phone Allergies and Intolerances date description facility type (no date) No Known Drug Allergies [facility] ([facility]) Encounters No information. Functional Status No information. Immunizations No information. Medications No information. Problems No information. Procedures No information. Results/Labs No information. Social History No information. Vital Signs No information.
[2022-04-06 13:33] VITALS: BP 114/67
--- NOTE | 2022-04-06 14:09 | ED Physician Documentation ---
History of Present Illness - Stated complaint Stated Complaint: HEAD PX/MIGRAINE - Chief complaint Chief Complaint: Neuro - History obtained from History obtained from: Patient - History of Present Illness Timing: Today Pain level max: 0 Pain level now: 0 - Additonal information Additional information: 31-year-old female presents to the emergency department stating that she is sent by her doctor at the [facility] for an orbit MRI that is pending scheduling. She states that she was told it would be about a month to approve the MRI. She is currently asymptomatic. Review of Systems Constitutional: denies: Fever GI: denies: Vomiting PD PAST MEDICAL HISTORY - Past Medical History Respiratory: Asthma - Past Surgical History Past Surgical History: No - Present Medications Home Medications: Ambulatory Orders Medication Instructions Recorded Confirmed Fluticasone/Salmeterol [Advair Hfa 2 puffs BID 02/16/21 04/09/21 45-21 Mcg Inhaler] - Allergies Allergies/Adverse Reactions: Allergies Allergy/AdvReac Type Severity Reaction Status Date / Time No Known Drug Allergies Allergy Verified 04/06/22 13:33 - Social History Does the pt smoke?: No Smoking Status: Never smoker Does the pt drink ETOH?: No Does the pt have substance abuse?: No PD ED PE NORMAL - Vitals Vital signs reviewed: Yes - General General: Alert and oriented X 3, No acute distress - HEENT HEENT: Moist mucous membranes - Respiratory Respiratory: No respiratory distress - Derm Derm: Warm and dry - Neuro Neuro: Alert and oriented X 3 Results - Vitals Vitals: Vital Signs - 24 hr 04/06/22 13:27 Temperature 36.5 C Heart Rate 63 Respiratory 16 Rate Blood Pressure 114/67 O2 Saturation 99 Oxygen O2 Source Room air PD MEDICAL DECISION MAKING - ED course Complexity details: considered differential, d/w patient ED course: Patient is asymptomatic. Upon reviewing her chart, it appears that the approval for the outpatient MRI is in her chart. There is also an order for an outpatient MRI. I discussed with MRI and they will fit her in at 4 PM today. The patient will be discharged from the ER to await her outpatient MRI as ordered by her outpatient provider. This document was made in part using voice recognition software. While efforts are made to proofread this document, sound alike and grammatical errors may occur. Departure - Departure Disposition: 01 Home, Self Care Clinical Impression: Encounter for medical screening examination Condition: Good Instructions: ED Screening Exam Medical Nonurgent Follow-Up: your,doctor as scheduled [Other] Comments: You are scheduled for an outpatient MRI at 4 PM today. Please remain in the waiting room until they call you.
== END 2022-04-06 14:32 | disposition home or self-care (01) ==
LOC: ED 13:15
DX: Z76.89 Persons encountering health services in other specified circumstances (principal); G93.2 Benign intracranial hypertension
CPT/HCPCS: 70543; 99281; A9585

== ENCOUNTER 2022-04-06 15:06 | Outpatient (CLI) | payer OTHER ==
[2022-04-06] MEDS ORDERED: GADOBUTROL 7.5 MMOL/7.5 ML VIAL ONE (15:34)
[2022-04-06] MEDS ORDERED: GADOBUTROL 7.5 MMOL/7.5 ML VIAL IVP ONE (16:53)
--- NOTE | 2022-04-07 09:43 | MRI Report ---
PROCEDURE: Orbits W/WO INDICATIONS: BENIGN INTRACRANIAL HYPERTENSION CONTRAST: IV CONTRAST: Gadavist ml: 6.0 TECHNIQUE: Noncontrast sagittal T1 spin echo, axial FLAIR, axial gradient echo, axial diffusion and ADC acquired through the brain. Coronal STIR, thin-slice axial T1 spin echo through the orbits. After the admin istration of contrast, thin slice axial and coronal T1 spin echo with fat saturation through the orbi ts, axial T1 spin echo with fat saturation through the brain. COMPARISON: None. FINDINGS: Image quality: Motion artifact is noted. Orbits: Globes are symmetrical. No abnormal flattening can be seen along the posterior aspects of t he globes. The optic nerves are normal in size, without abnormal signal or enhancement. No abnormal f luid can be seen along the optic nerves. No retrobulbar masses or fat abnormalities. The extra-ocula r muscles are normal and symmetric in appearance. Lacrimal glands are normal. Optic chiasm is itzel l. Periorbital soft tissues appear normal. CSF spaces: Ventricles are normal in size and shape. Basal cisterns are patent. No extra-axial flu id collections. Brain: No intracranial bleeds or mass effects. No abnormal intracranial enhancement. Bell-white ma tter interface is intact. Diffusion weighted images demonstrate no acute ischemic insults. Pituitar y gland appears normal, without sellar or suprasellar masses. The pituitary demonstrates normal bulk, without abnormal flattening along the floor of the sella turcica. Brainstem appears normal. Normal intravascular flow voids are present. Skull and face: Calvarial marrow is normal in signal. Sinuses: Sinuses and mastoids are clear. IMPRESSION: Intracranial study within normal limits, without james findings of benign intracranial hypertension. Reviewed by: Juve Bar MD on 04/07/2022 8:41 AM JOANIE Approved by: Juve Bar MD on 04/07/2022 8:41 AM AKSAUD Station ID: [id number]
== END 2022-04-06 15:07 | disposition home or self-care (01) ==
LOC: DI 15:06
PROVIDERS: ATTEND Optometrist
DX: G93.2 Benign intracranial hypertension (principal)

== ENCOUNTER 2022-07-08 09:29 | Outpatient (CLI) | payer OTHER ==
[~2022-07-08 09:29] MED LIST: GADOBUTROL 7.5 MMOL/7.5 ML VIAL ONE
[2022-07-08] MEDS ORDERED: GADOBUTROL 7.5 MMOL/7.5 ML VIAL IVP ONE (12:27)
--- NOTE | 2022-07-12 13:43 | MRI Report ---
PROCEDURE: Brain Angio W/WO INDICATIONS: HEADACHE CONTRAST: GADIVIST 6.2 TECHNIQUE: Axial and Sagittal pre-contrast images were obtained through the head. Sagittal and Axial images wer e obtained after the administration of contrast in the arterial phases, with rotating 3-dimensional m aximum intensity projection (MIP) reformats constructed from subtraction images. COMPARISON: There are no comparisons for this study. FINDINGS: Image quality: Excellent. Anterior circulation: Intracranial internal carotid arteries demonstrate normal size and intraluminal flow signal. The flow within the paired anterior cerebral arteries is normal and symmetric. The flow within the middle cerebral arteries is normal and symmetric. The anterior communicating artery is se en. No stenosis, occlusions, or aneurysms are identified. Posterior circulation: Visualized portions of the right vertebral are within normal limits. Limited o pacification of the left vertebral artery is present. Visualized portions of the vertebral arteries demonstrate normal caliber, and join to form a normal appearing basilar artery. The flow within the p osterior cerebral arteries is normal and symmetric. No stenosis, occlusions, or aneurysms are identif ied. IMPRESSION: 1. Suboptimal opacification of the left vertebral artery. This could be further assessed with CT william ography, if clinically indicated. 2. Otherwise negative cerebral MR angiography. Reviewed by: Brian Tran MD on 07/12/2022 1:41 PM PST Approved by: Brian Tran MD on 07/12/2022 1:41 PM PST Station ID: [id number]
== END 2022-07-08 09:30 | disposition home or self-care (01) ==
LOC: DI 09:29
PROVIDERS: ATTEND Nurse Practitioner Family
DX: R51.9 Headache, unspecified (principal)
CPT/HCPCS: 70546; A9585